=== PATIENT | female | born 1955 | race Caucasian/White ===

== ENCOUNTER 2018-07-02 13:09 | Emergency (ER) | payer SELFPAY ==
--- NOTE | 2018-07-02 13:22 | ED Physician Documentation ---
General Adult - HISTORIAN Historian: patient - HPI Stated Complaint: heat stroke Chief Complaint: General Adult Onset: days ago (5) Timing: still present Severity: moderate Further Comments: yes (She states that she has been working over time at the [employer] - she notes when she gets too hot she gets blurry vision. She also reports that after going back in AC she feels better. She denies any weakness on one side of body vs the other. Denies any chest pain. She does have some tingling in her hands. Her left great toe hurts and she has chronic pain in her right knee . She sees urgent care at for her health care due to no insurance. She does have a history of a stroke and her heart has "some issues"------- after discussion the states could this be why she is having confusion. Which she did not state and denies) Last known Well Code/Unknown Code: Unknown - ROS CONST: no problems EYES/ENT: problems with vision (only when she "overheats" ) CVS/RESP: denies: chest pain, shortness of breath, cough GI/: denies: problems urinating, vomiting, nausea MS/SKIN/LYMPH: joint pain (right knee - chronic ). denies: neck pain, leg swelling, rash NEURO/PSYCH: tingling (both arms ). denies: headache, fainting, dizziness, numbness, difficulty walking, difficulty with speech - PAST HX Past History: hypertension (not controlled (she has no PCP ) ) Surgeries/Procedures: other (caroid and TA ) Immunizations: UTD Allergies/Adverse Reactions: Allergies Allergy/AdvReac Type Severity Reaction Status Date / Time Penicillins Allergy Verified 07/02/18 13:35 Home Medications: Ambulatory Orders Medication Instructions Recorded Aspirin [Aspir-Low] 1 tab PO DAILY 07/02/18 Lisinopril/Hydrochlorothiazide 1 tab PO DAILY 07/02/18 [Zestoretic 10-12.5 mg Tablet] - SOCIAL HX Smoking History: cigarettes Alcohol Use: none Drug Use: none - FAMILY HX Family History: No - REVIEWED ASSESSMENTS Nursing Assessment Reviewed: Yes Vitals Reviewed: Yes Progress - Progress Progress: 1520: She is doing well no complaints. She is up to the restroom without difficulty. DG 1540: She is aware of results and plan. DG ED Results Lab/Radiology - Radiology Radiology Impressions: Head CT without contrast History: Hypertension and blurred vision Technique: Axial images were obtained from the skullbase to the vertex without contrast Findings: The ventricular system, basilar cisterns and cortical sulci are within normal limits. Scattered patchy areas of periventricular to subcortical white matter lucency are present consistent with [id number] small vessel ischemic disease. There is a 6 mm chronic lacunar type infarct involving the posterolateral left thalamus. There is no evidence for acute infarct involving a major vascular distribution and there is no intra or extra-axial hemorrhage. Paranasal sinuses and mastoid air cells are clear and the calvarium is intact. Impression: Mild to moderate small vessel ischemic disease. 6 mm chronic lacunar type infarct of the left posterolateral thalamus. No acute intracranial abnormality. Electronically signed on Jul 02, 2018 2:49:13 PM CDT by: Jada Clancy PA and lateral chest History: Hypertension PA and lateral chest dated July 02, 2018 is without prior radiographs for comparison. The cardiomediastinal silhouette is normal. Pulmonary vascularity is normal. Lungs are clear. Impression: No active disease. Electronically signed on Jul 02, 2018 2:50:32 PM CDT by: Jada Clancy General Adult Physical Exam - PHYSICAL EXAM GENERAL APPEARANCE: mild distress EENT: eye inspection normal, ENT inspection normal, ELSI NECK: normal inspection RESPIRATORY: no resp distress, chest non-tender, breath sounds normal CVS: reg rate & rhythm, heart sounds normal, equal pulses, no murmur ABDOMEN: soft, normal bowel sounds, no distension, non-tender RECTAL: normal exam BACK: normal inspection, no CVA tenderness SKIN: warm/dry, normal color EXTREMITIES: non-tender, normal range of motion, no evidence of injury, no edema NEURO: oriented X3, CN's nml as tested, motor nml, sensation nml, mood/affect nml, cognition normal Discharge Clincal Impression: Hypertension Qualifiers: Hypertension type: unspecified Qualified Code(s): I10 - Essential (primary) hypertension Referrals: Primary Doctor,No [Primary Care Provider] - 2 Days Additional Instructions: 1. Increase fluids 2. Rest 3. Follow up with PCP 4. Return to ER For any concerns Condition: Stable Disposition: 01 HOME, SELF-CARE Decision to Admit: NO Date of Decison to Admit: 07/02/18 Decision Time: 15:56
[2018-07-02] MEDS ORDERED: 0.9 % SODIUM CHLORIDE 1,000 ML IV ONE (13:32)
[2018-07-02 13:56] LABS: BASOPHILS % 0.4 (0.0-1.5); EOSINOPHILS % 1.9 % (0.0-6.8); MEAN CORPUSCULAR HEMOGLOBIN 28.8 pg (28.0-34.0); MEAN CORPUSCULAR VOLUME 84.7 fl (80.0-100.0); MONOCYTES % 5.1 % (0.0-11.0); NEUTROPHILS # 4.3 # k/uL (1.4-7.7)
[2018-07-02 14:17] LABS: eGFR (African) > 60; eGFR (Non-African) > 60
[2018-07-02 15:46] LABS: CANNABINOIDS NON NEGATIVE ng/mL (< 50); METHYLENEDIOXYMETHAMPHETAMINE NEGATIVE ng/mL (<500)
[2018-07-02 16:53] LABS: APPEARANCE,URINE CLEAR (CLEAR); COLOR,URINE YELLOW (YELLOW)
[2018-07-02 16:54] LABS: OCCULT BLOOD,URINE TRACE-INTACT (NEGATIVE); UROBILINOGEN URINE 0.2 Eu (0.2-1.0)
[2018-07-02 16:59] VITALS: BP 165/76
--- NOTE | 2018-07-02 19:05 | Diagnostic Imaging Report ---
TRAY DELEON [facility] [id number] [facility] [address] [place], [place]. [address] Report Submission Date: Jul 02, 2018 2:50:32 PM CDT Patient Study Name: DOUG SORTO Date: Jul 02, 2018 2:17:15 PM CDT Modality Type: DX Gender: F Description: CHEST : 59 Institution: [facility] Physician: TRAY DELEON PA and lateral chest History: Hypertension PA and lateral chest dated July 02, 2018 is without prior radiographs for comparison. The cardiomediastinal silhouette is normal. Pulmonary vascularity is normal. Lungs are clear. Impression: No active disease. Electronically signed on Jul 02, 2018 2:50:32 PM CDT by: Jada CORONADO
--- NOTE | 2018-07-02 19:06 | Diagnostic Imaging Report ---
TRAY DELEON [facility] [address] Counts Include [address] At [facility] [address] [place], [place]. [address] Report Submission Date: Jul 02, 2018 2:49:13 PM CDT Patient Study Name: DOUG SORTO Date: Jul 02, 2018 2:17:01 PM CDT Modality Type: CT\SR Gender: F Description: CT BRAIN W/O CONTRAST : 59 Institution: [facility] Physician: TRAY DELEON Head CT without contrast History: Hypertension and blurred vision Technique: Axial images were obtained from the skullbase to the vertex without contrast Findings: The ventricular system, basilar cisterns and cortical sulci are within normal limits. Scattered patchy areas of periventricular to subcortical white matter lucency are present consistent with [id number] small vessel ischemic disease. There is a 6 mm chronic lacunar type infarct involving the posterolateral left thalamus. There is no evidence for acute infarct involving a major vascular distribution and there is no intra or extra-axial hemorrhage. Paranasal sinuses and mastoid air cells are clear and the calvarium is intact. Impression: Mild to moderate small vessel ischemic disease. 6 mm chronic lacunar type infarct of the left posterolateral thalamus. No acute intracranial abnormality. Electronically signed on Jul 02, 2018 2:49:13 PM CDT by: Jada CORONADO
== END 2018-07-02 16:05 | disposition home or self-care (01) ==
LOC: ED 13:09
DX: I10 Essential (primary) hypertension (principal)
CPT/HCPCS: 70450; 71046; 80053; 80320; 80377; 81002; 83880; 84484; 85025; 85610; 93005; J7030; 96365; 99284; G0480; G0481; S1016